=== PATIENT | male | born 1980 | race Hispanic/Latino ===

== ENCOUNTER 2023-02-04 18:17 | Emergency (ER) | payer OTHER ==
[~2023-02-04] VITALS: Ht 170.2 cm; Wt 96.2 kg
[2023-02-04] MEDS ORDERED: KETOROLAC 60 MG VIAL (30MG/ML) IM ONE (18:45)
[2023-02-04] MEDS ORDERED: KETOROLAC 30MG VIAL (30MG/ML) IM ONE (19:00)
[2023-02-04] MEDS ORDERED: HYDROCODONE/ACETAMINOPHEN 5/325 MG TAB PO ONE (19:00)
[2023-02-04] MEDS ORDERED: PREDNISONE 20 MG TABLET PO ONE (19:00)
[2023-02-04 20:16] VITALS: BP 149/75; PULSE 75; RESP 14; O2SAT 98
[2023-02-04] MEDS ORDERED: NAPR-1180 PO (20:25)
[2023-02-04] MEDS ORDERED: CYCL-309 PO (20:25)
[2023-02-04] MEDS ORDERED: METH4TAB3 PO (20:25)
== END 2023-02-04 20:40 | disposition home or self-care (01) ==
LOC: EDH 18:17
DX: M54.50 Low back pain, unspecified (principal)
CPT/HCPCS: 99283; 96372; J1885